=== PATIENT | male | born 1965 | race Caucasian/White ===

== ENCOUNTER → 2024-03-20 10:13 | Outpatient (REF) | payer BC, SELFPAY ==
[2024-03-20 10:55] LABS: % Basophils 0.4 % (0-2); % Eosinophils 1.6 % (0-6); % Immature Granulocytes 0.2 % (0-0.5); % Lymphocytes 30.6 % (20.5-51.1); % Monocytes 8.1 % (1.7-9.3); % Neutrophils 59.1 % (42.2-75.2); Absolute Eosinophils 0.1 10^3/uL (0-0.7); Absolute Lymphocytes 1.5 10^3/uL (1.2-3.4); Absolute Monocytes 0.4 10^3/uL (0.1-0.6); Hematocrit 43.4 % (39.0-52.0); Hemoglobin 14.9 g/dL (13.0-18.0); Mean Corp Hgb Conc. 34.3 g/dL (33.0-37.0); Mean Corpuscular Hgb 32.5 pg (27.0-31.0); Mean Corpuscular Volume 94.8 fL (80.0-94.0); Mean Platelet Volume 9.3 fL (7.4-10.4); Nucleated Red Blood Cells % 0 % (-); Platelet Count 244 10^3/uL (130-400); Red Blood Cell Count 4.58 10^6/uL (4.70-6.10); Red Cell Dist. Width 12.1 % (11.5-14.5)
[2024-03-20 11:33] LABS: ALT (SGPT) 26 U/L (0-50); AST (SGOT) 34 U/L (17-59); Albumin 4.7 g/dl (3.5-5.0); Alkaline Phosphatase 75 U/L (38-126); Blood Urea Nitrogen 18 mg/dl (9-20); Calcium 9.9 mg/dl (8.4-10.2); Carbon Dioxide 29 mmol/L (22-30); Chloride 104 mmol/L (98-107); Glucose 96 mg/dl (70-99); HDL Cholesterol 54 mg/dl; LDL Cholesterol, Calculated 67 mg/dl; Potassium 4.8 mmol/L (3.5-5.1); Sodium 141 mmol/L (135-145); Total Bilirubin 1.4 mg/dl (0.2-1.3); Total Cholesterol 135 mg/dl (50-199); Total Protein 7.3 g/dl (6.3-8.2); Triglyceride 72 mg/dl (10-149); Very Low Density Lipoprotein 14 mg/dl (0-30); eGFR > 60.00
[2024-03-20 11:58] LABS: PSA, Total - Screen 1.04 ng/ml (0.0-4.0); TSH Reflex To Free T4 1.28 uIU/ml (0.47-4.68)
[2024-03-20 14:43] LABS: Vitamin B12 566 pg/ml (239-931)
[2024-03-21 14:24] LABS: Syphilis/T. pallidum Ab Reflex Negative (Negative)
== END ==
LOC: REG 10:13
PROVIDERS: ATTENDING PHYSICIAN Student in an Organized Health Care Education/Training Program
DX: E78.5 Hyperlipidemia, unspecified (principal); R41.3 Other amnesia; Z00.00 Encounter for general adult medical examination without abnormal findings; Z12.5 Encounter for screening for malignant neoplasm of prostate; R25.1 Tremor, unspecified
CPT/HCPCS: 36415; 80053; 80061; 82607; 84443; 85025; 86780; G0103

== ENCOUNTER 2024-12-10 13:48 | Emergency (ER) | payer BC, SELFPAY ==
[2024-12-10 14:15] VITALS: BP 140/94
--- NOTE | 2024-12-10 17:16 | ED.GENMED ---
History of Present Illness
General
Chief Complaint: Abdominal Pain
Source: patient
Exam Limitations: none
Time Seen by Provider: 12/10/24 17:04
History of Present Illness
History of Present Illness:
59-year-old male who presents emergency department with constipation for the last 9 days despite taking zevt-hmy-jzukguo laxatives. He states that over the last 2 days with the help of suppositories he has passed watery brown stool that sometimes
is tinged with bright red blood. He denies anorexia, nausea, vomiting, fever, chills, chest pain, shortness of breath. He does have mild discomfort in the left lower quadrant for the last 2 days rated as a 5 out of 10 that is constant without
exacerbating relieving factors.
Past History
Past History
ED Past Medical History: Arrthythmia, CAD and DC
ED Past Surgical History: Cardiac
Social History
Tobacco: Non-smoker
Alcohol: Occasional
Drug: None
Personal:
Living: with family
Employment: Employed
Phy Exam
Physical Exam
Physical Exam:
GENERAL: Alert , in no apparent distress
EYE: pupils equal and reactive
NECK: Supple, no significant adenopathy.
ENT: o/p clr, mmm.
CARDIAC: Regular rate and rhythm .
LUNGS: Clear breath sounds bilaterally, no acute respiratory distress, no wheezes/rales/rhonchi
ABDOMEN: Soft, very mild left lower quadrant tenderness, no r/g, no cvat
NEUROLOGICAL: Alert and oriented, no focal neuro deficits
SKIN: Warm and dry, skin intact.
MUSCULOSKELETAL: No edema, well perfused.
PSYCH: Normal and appropriate interaction.
Rectal The RN Starr I present empty vault, heme-negative
Course
Orders/Labs/Results
Orders:
Orders
12/10/24 14:23
Obstruct Series W/PA Chest [CR Obstruct Series W/pa Chest] Urgent
Comment:
Reason For Exam: possible obs, constipation
12/10/24 17:19
CT Abd/Pel (IV only)-DH only Urgent
Comment:
Reason For Exam: llq pain, constipation
12/10/24 17:38
Complete Blood Count/No Diff Urgent
Comprehensive Metabolic Panel Urgent
Abnormal Lab Results
12/10/24
17:38
RBC 4.60 L 10^6/uL
(4.70-6.10)
MCH 33.0 H pg
(27.0-31.0)
Carbon Dioxide 31 H mmol/L
(22-30)
12/10/24 17:38
12/10/24 17:38
Vital Signs
Initial and Last Documented VS:
Initial Vital Signs
Temp Pulse Resp BP Pulse Ox
97.9 F 79 16 140/94 98
12/10/24 14:15 12/10/24 14:15 12/10/24 14:15 12/10/24 14:15 12/10/24 14:15
Last Documented Vital Signs
Temp Pulse Resp BP Pulse Ox
97.9 F 79 16 140/94 98
12/10/24 14:15 12/10/24 14:15 12/10/24 14:15 12/10/24 14:15 12/10/24 14:15
*Critical Care Note
Total Time (30-74mins, 75-104mins- exclusive of procedures): Not Applicable
Update Note
Update Note:
Patient presents to the Emergency Department with ___inability to have a bowel movement
Number and Complexity of Problems Addressed at the Encounter
� Chronic conditions affecting care:
� Acute Exacerbation and/or Progression of Chronic Illness:
� Differential Diagnosis includes: But not limited to functional constipation, bowel obstruction, diverticulitis, etc. etc.
Amount and/or Complexity of Data to be Reviewed and Analyzed
� I performed an independent evaluation of and my interpretation is:
EKG:
CT:There is an enhancing mass arising in the right kidney as described, which very likely represents renal cell carcinoma. No evidence for thrombus within the right renal vein or the IVC.
Small moderate amount of stool within the colon. No findings to suggest stercoral colitis.
No evidence for bowel obstruction or free intraperitoneal air.
Bony degenerative changes as described. No CT evidence for bony metastatic disease.
No CT evidence for lymphadenopathy within the abdomen or pelvis.
Xrays:
Laboratory Studies: Generally unremarkable
Other:
� Review of other/old records reveals:
� Clinical information was obtained by an independent historian:
� Prescriptions/Medications Considered but not given:
� Further testing considered but not performed:
Risk of Complications and/or Morbidity or Mortality of Patient Management
� Social determinants of health affecting care:
� Discussion with other providers (PCP, Hospitalists, Consultants, etc):
� Escalation of care including admission/observation vs risk of discharge considered: Patient notified of CAT scan report including suspicion for RCC. He was given a copy of the report. I spoke to his primary care doctor,
Oskar Nicole, via [employer] text and she will connect with patient in the morning to continue workup.
ED Attending Note
-
Portions of this chart may have been created with voice recognition software.� Occasional wrong word or��sound alike� substitutions may have occurred due to the inherent limitations of voice recognition software.
Discharge Plan
Departure
Patient Disposition: Home (Routine Discharge)
Date of Disposition: 12/10/24
Time of Disposition: 19:50
Patient with high blood pressure during this ER visit?: Yes
Condition: Good
Discharge Problem:
Constipation, Abdominal pain
Instructions: Constipation, Adult (DC), Abdominal Pain, BLOOD PRESSURE
Prescriptions:
No Action
atorvastatin 40 MG tablet
40 mg PO QPM Qty: 30 3RF
clopidogrel 75 MG tablet
75 mg PO DAILY Qty: 30 3RF
aspirin 81 MG tablet,chewable
81 mg PO DAILY Qty: 30 3RF
metoprolol succinate 12.5 MG tablet extended release 24 hr
12.5 mg PO QPM Qty: 30 0RF
Referrals:
Elizabeth Rader MD [Family Provider] - Tomorrow
Activity Restrictions/Additional Instructions:
WE DISCUSSED, YOU HAVE FINDINGS ON YOUR CAT SCAN THAT REQUIRE URGENT FOLLOW-UP. PLEASE CALL YOUR FAMILY DOCTOR FIRST THING IN THE MORNING TO BEGIN THIS IMPORTANT EVALUATION. IT IS RECOMMENDED THAT YOU BEGIN TAKING MIRALAX DIRECTED EACH DAY.
IF YOU DEVELOP INCREASING NEW OR PERSISTENT PAIN, ANY FEVER, VOMITING, CHEST PAIN, BLEEDING, OR OTHER WORRISOME SIGNS, PLEASE RETURN TO THE ER IMMEDIATELY.
Interventions
Interventions:
*Risk Screen - Suicide Last Done: 12/10/24 14:15
*Neglect/Abuse Screening Last Done: 12/10/24 14:15
Discharge Date and Time
Print Language: KOREAN
[2024-12-10 17:46] LABS: Hematocrit 42.8 % (39.0-52.0); Hemoglobin 15.2 g/dL (13.0-18.0); Mean Corp Hgb Conc. 35.5 g/dL (33.0-37.0); Mean Platelet Volume 9.2 fL (7.4-10.4); Platelet Count 226 10^3/uL (130-400); Red Cell Dist. Width 12.2 % (11.5-14.5); White Blood Cell Count 6.9 10^3/uL (4.8-10.8)
[2024-12-10 18:00] LABS: ALT (SGPT) 28 U/L (0-50); AST (SGOT) 31 U/L (17-59); Albumin 4.8 g/dl (3.5-5.0); Alkaline Phosphatase 79 U/L (38-126); Blood Urea Nitrogen 13 mg/dl (9-20); Calcium 9.5 mg/dl (8.4-10.2); Carbon Dioxide 31 mmol/L (22-30); Chloride 100 mmol/L (98-107); Glucose 99 mg/dl (70-99); Potassium 4.6 mmol/L (3.5-5.1); Sodium 138 mmol/L (135-145); Total Bilirubin 1.1 mg/dl (0.2-1.3); Total Protein 7.4 g/dl (6.3-8.2); eGFR > 60.00
[2024-12-10 19:53] VITALS: BP 161/98
== END 2024-12-10 20:14 | disposition home or self-care (01) ==
LOC: EMR 13:48
PROVIDERS: EMERGENCY PHYSICIAN Emergency Medicine; FAMILY PHYSICIAN Student in an Organized Health Care Education/Training Program
DX: K59.00 Constipation, unspecified (principal); R03.0 Elevated blood-pressure reading, without diagnosis of hypertension; R10.9 Unspecified abdominal pain
CPT/HCPCS: 99285; 74022; 74177; 80053; 85027; Q9967

== ENCOUNTER → 2025-04-09 07:23 | Outpatient (REF) | payer BC, SELFPAY ==
[2025-04-09 09:00] LABS: HDL Cholesterol 44 mg/dl; LDL Cholesterol, Calculated 53 mg/dl; Very Low Density Lipoprotein 16 mg/dl (0-30)
== END ==
LOC: REG 07:23
PROVIDERS: ATTENDING PHYSICIAN Internal Medicine Cardiovascular Disease; FAMILY PHYSICIAN Student in an Organized Health Care Education/Training Program
DX: E78.5 Hyperlipidemia, unspecified (principal)
CPT/HCPCS: 36415; 80061

== ENCOUNTER → 2025-04-26 09:00 | Outpatient (REF) | payer BC, SELFPAY | LOC: RCS 09:00 | PROVIDERS: ATTENDING PHYSICIAN Internal Medicine Cardiovascular Disease; FAMILY PHYSICIAN Student in an Organized Health Care Education/Training Program | DX: Z95.1 Presence of aortocoronary bypass graft (principal); I25.10 Atherosclerotic heart disease of native coronary artery without angina pectoris | CPT/HCPCS: 93306 ==

== ENCOUNTER → 2025-07-09 13:01 | Outpatient (REF) | payer BC, SELFPAY ==
[2025-07-09 14:29] LABS: Blood Urea Nitrogen 15 mg/dl (9-20); Calcium 9.2 mg/dl (8.4-10.2); Carbon Dioxide 29 mmol/L (22-30); Chloride 102 mmol/L (98-107); Glucose 91 mg/dl (70-99); Potassium 4.5 mmol/L (3.5-5.1); Sodium 138 mmol/L (135-145); eGFR > 60.00
== END ==
LOC: REG 13:01
PROVIDERS: ATTENDING PHYSICIAN Physician Assistant Surgical; FAMILY PHYSICIAN Student in an Organized Health Care Education/Training Program
DX: C64.9 Malignant neoplasm of unspecified kidney, except renal pelvis (principal)
CPT/HCPCS: 36415; 80048

== ENCOUNTER 2025-08-05 10:02 | Emergency (ER) | payer BC, SELFPAY ==
[2025-08-05 10:06] VITALS: BP 146/78
[2025-08-05 12:17] VITALS: BP 157/90
--- NOTE | 2025-08-05 12:27 | ED.GENMED ---
History of Present Illness
<Tiana Costa MD, Resident - Last Filed: 08/05/25 13:05>
General
Chief Complaint: Bowel Problem
Source: patient
Time Seen by Provider: 08/05/25 11:43
History of Present Illness
History of Present Illness:
60-year-old male with past medical history of renal cell carcinoma status post resection February 2025, LA status post triple bypass surgery presents to the ED for constipation of 2-1/2 weeks. He has not had a bowel movement since 2.5 weeks ago. He has
had squirts of very liquidy diarrhea over the past few days. He has tried every qrvy-gsj-zjxkmxn laxative, enema, stool softener available to no avail. His primary care doctor recommended him to come in for stronger enema/manual disimpaction. He
denies any fevers, chills, nausea, vomiting and has been able to take p.o. He denies any blood in the stool. He endorses slight abdominal discomfort in the left lower quadrant but is otherwise comfortable.
Patient is concerned given the last time this happened he was diagnosed with renal cell carcinoma causing bowel obstruction. He had a partial right nephrectomy in December 2024 and repeat abdomen pelvic CT with Sae Lares 6 months later (june)
which did not reveal any recurrence of the malignancy.
Past History
<Tiana Costa MD, Resident - Last Filed: 08/05/25 13:05>
Past History
ED Past Medical History: Arrthythmia, CAD, LA and Other (Renal cell carcinoma right kidney status post partial nephrectomy 12/2024)
ED Past Surgical History: Cardiac and Other (Partial right sided nephrectomy in 12/2024)
Social History
Tobacco: Non-smoker
Alcohol: Occasional
Drug: None
Personal:
Living: with family
Employment: Employed
Review of Systems
<Tiana Costa MD, Resident - Last Filed: 08/05/25 13:05>
Review of Systems
Allergies reviewed?: Yes
Constitutional: Reports no symptoms
EENT: Reports no symptoms
Respiratory: Reports no symptoms
Cardiac: Reports no symptoms
ABD/GI: Reports constipated
: Reports no symptoms
Musculoskeletal: Reports no symptoms
Skin: Reports no symptoms
Neurological: Reports no symptoms
Psychiatric: Reports no symptoms
Phy Exam
<Tiana Costa MD, Resident - Last Filed: 08/05/25 13:05>
Physical Exam
Physical Exam:
General: Well-appearing, nontoxic
Head: Atraumatic
Neck: Supple
Cardiac: Regular S1, S2, no murmurs
Respiratory: Clear breath sounds bilaterally
Abdominal: Stool burden palpable in central lower abdomen, all other quadrants nontender, nondistended, normal bowel sounds in all 4 quadrants
Neurological: Nonfocal, awake alert and oriented
Genital: Digital rectal exam unable to feel hard fecal mass at anus, Hemoccult negative.
EXTR: No peripheral edema
Psych: Mood stable
Course
<Tiana Costa MD, Resident - Last Filed: 08/05/25 13:05>
Orders/Labs/Results
Orders:
Orders
08/05/25 12:12
Enema- Treatment ONCE
Type: Milk of Molasses
08/05/25 13:04
CT Abd/pel W Iv And Oral Contr Urgent
Comment:
Reason For Exam: No bowel movement for past 2.5 weeks, ab pain,
Iohexol [Omnipaque] See Protocol PO NOW STA
08/05/25 13:11
BMP [Basic Metabolic Panel] Urgent
Complete Blood Count/With Diff Urgent
08/05/25 17:01
Enema- Treatment ONCE
Type: Soap Suds
08/05/25 18:03
Magnesium Citrate [Citroma] 300 ml PO ONCE ONE
Abnormal Lab Results
08/05/25
13:11
RBC 4.68 L 10^6/uL
(4.70-6.10)
MCV 96.2 H fL
(80.0-94.0)
MCH 32.7 H pg
(27.0-31.0)
Carbon Dioxide 31 H mmol/L
(22-30)
08/05/25 13:11
08/05/25 13:11
Vital Signs
Initial and Last Documented VS:
Initial Vital Signs
Temp Pulse Resp BP Pulse Ox
98.3 F 49 16 146/78 98
08/05/25 10:06 08/05/25 10:06 08/05/25 10:06 08/05/25 10:06 08/05/25 10:06
Last Documented Vital Signs
Temp Pulse Resp BP Pulse Ox
98.3 F 49 16 157/90 100
08/05/25 10:06 08/05/25 10:06 08/05/25 10:06 08/05/25 12:17 08/05/25 12:37
<Neymar Valera MD - Last Filed: 08/07/25 11:57>
Orders/Labs/Results
Orders:
Orders
08/05/25 12:12
Enema- Treatment ONCE
Type: Milk of Molasses
08/05/25 13:04
CT Abd/pel W Iv And Oral Contr Urgent
Comment:
Reason For Exam: No bowel movement for past 2.5 weeks, ab pain,
Iohexol [Omnipaque] See Protocol PO NOW STA
08/05/25 13:11
BMP [Basic Metabolic Panel] Urgent
Complete Blood Count/With Diff Urgent
08/05/25 17:01
Enema- Treatment ONCE
Type: Soap Suds
08/05/25 18:03
Magnesium Citrate [Citroma] 300 ml PO ONCE ONE
Abnormal Lab Results
08/05/25
13:11
RBC 4.68 L 10^6/uL
(4.70-6.10)
MCV 96.2 H fL
(80.0-94.0)
MCH 32.7 H pg
(27.0-31.0)
Carbon Dioxide 31 H mmol/L
(22-30)
08/05/25 13:11
08/05/25 13:11
Vital Signs
Initial and Last Documented VS:
Initial Vital Signs
Temp Pulse Resp BP Pulse Ox
98.3 F 49 16 146/78 98
08/05/25 10:06 08/05/25 10:06 08/05/25 10:06 08/05/25 10:06 08/05/25 10:06
Last Documented Vital Signs
Temp Pulse Resp BP Pulse Ox
98.3 F 49 16 157/90 100
08/05/25 10:06 08/05/25 10:06 08/05/25 10:06 08/05/25 12:17 08/05/25 12:37
<Tiana Costa MD, Resident - Last Filed: 08/05/25 13:05>
MDM/Problems Addressed
Differential Diagnosis Includes:
Constipation, malignancy, obstruction, medication induced constipation
MDM/Problems Addressed:
Digital rectal exam attempted and unable to feel any hard fecal mass at the anus. Hemoccult was negative. Milk of molasses enema ordered. May consider imaging if unable to have a bowel movement after milk of molasses enema.
<Tiana Costa MD, Resident - Last Filed: 08/05/25 13:05>
*Pulse Oximetry
SaO2: 100
Oxygen Mode of Delivery: Room air
Patient hypoxic: no
*Critical Care Note
Total Time (30-74mins, 75-104mins- exclusive of procedures): Not Applicable
Data Reviewed
Review of Other/Old Records Reveals: Labs (Stable hemoglobin on 12/10/2024) and Radiology Studies (Renal cell carcinoma noted on abdomen/pelvis CT 12/10/2024)
Source: patient
<Neymar Valera MD - Last Filed: 08/07/25 11:57>
Update Note
Update Note:
CT report reviewed and discussed with patient. Repeat abdominal exam: Soft and nontender. Decision made to administer second dose of enema, unfortunately, without success. As such, patient will be discharged home at this time, with recommendation
to continue diet modification, stool softener, along with oral laxatives, as well as PCP follow-up.
ED Attending Note
<Tiana Costa MD, Resident - Last Filed: 08/05/25 13:05>
-
Portions of this chart may have been created with voice recognition software.� Occasional wrong word or��sound alike� substitutions may have occurred due to the inherent limitations of voice recognition software.
Discharge Plan
Departure
Patient Disposition: Home (Routine Discharge)
Date of Disposition: 08/05/25
Time of Disposition: 18:04
Patient with high blood pressure during this ER visit?: Yes
Condition: Good
Discharge Problem:
Constipation
Instructions: Constipation, Adult (DC)
Prescriptions:
No Action
atorvastatin 40 MG tablet
40 mg PO QPM Qty: 30 3RF
clopidogrel 75 MG tablet
75 mg PO DAILY Qty: 30 3RF
aspirin 81 MG tablet,chewable
81 mg PO DAILY Qty: 30 3RF
metoprolol succinate 12.5 MG tablet extended release 24 hr
12.5 mg PO QPM Qty: 30 0RF
Referrals:
Elizabeth Rader MD [Family Provider, Internal Medicine]
Activity Restrictions/Additional Instructions:
As discussed, please follow-up with your primary care physician for continual evaluation and treatment. The meantime, recommend diet modification, i.e. increasing fiber intake, along with use of stool softener and oral laxatives. Please consider
return to ED with worsening symptoms, i.e. fever/worsening pain/vomiting.
Interventions
Interventions:
*Risk Screen - Suicide Last Done: 08/05/25 10:06
*Neglect/Abuse Screening Last Done: 08/05/25 10:06
*ED- Fall Risk Assessment Last Done: 08/05/25 10:55
*ED COVID-19 Vaccine History Last Done: 08/05/25 10:55
*ED Influenza Vaccine History Last Done: 08/05/25 10:55
*Nursing Disposition Last Done: 08/05/25 18:19
SY-Mkendb-Wkjhdgiuyx Assessment Last Done: 08/05/25 10:55
Discharge Date and Time
Discharge Date/Time: 08/05/25 18:19
Print Language: MALAY
[2025-08-05] MEDS: OMNIPAQUE 50 ML PO (13:10)
[2025-08-05 13:23] LABS: Hematocrit 45.0 % (39.0-52.0); Hemoglobin 15.3 g/dL (13.0-18.0); Mean Corp Hgb Conc. 34.0 g/dL (33.0-37.0); Mean Corpuscular Volume 96.2 fL (80.0-94.0); Nucleated Red Blood Cells % 0 % (-); Platelet Count 223 10^3/uL (130-400); Red Cell Dist. Width 12.2 % (11.5-14.5)
[2025-08-05 13:47] LABS: Blood Urea Nitrogen 13 mg/dl (9-20); Calcium 9.4 mg/dl (8.4-10.2); Carbon Dioxide 31 mmol/L (22-30); Chloride 104 mmol/L (98-107); Glucose 98 mg/dl (70-99); Potassium 5.0 mmol/L (3.5-5.1); Sodium 140 mmol/L (135-145); eGFR > 60.00
[2025-08-05] MEDS: CITROMA 300 ML PO (18:21)
== END 2025-08-05 18:19 | disposition home or self-care (01) ==
LOC: EMR 10:02
PROVIDERS: EMERGENCY PHYSICIAN Emergency Medicine; FAMILY PHYSICIAN Student in an Organized Health Care Education/Training Program
DX: K59.00 Constipation, unspecified (principal); I25.10 Atherosclerotic heart disease of native coronary artery without angina pectoris; I25.2 Old myocardial infarction; C64.9 Malignant neoplasm of unspecified kidney, except renal pelvis; Z90.5 Acquired absence of kidney
CPT/HCPCS: 99284; 74177; 80048; 85025; Q9967

== ENCOUNTER → 2025-08-13 12:36 | Outpatient (REF) | payer BC, SELFPAY | LOC: RAD 12:36 | PROVIDERS: ATTENDING PHYSICIAN Student in an Organized Health Care Education/Training Program | DX: K59.00 Constipation, unspecified (principal) | CPT/HCPCS: 74018 ==

== ENCOUNTER 2025-09-02 06:25 | Day surgery (SDC) | payer BC, SELFPAY | END 2025-09-02 15:53 | disposition home or self-care (01) | LOC: GI 06:25 | PROVIDERS: ATTENDING PHYSICIAN Internal Medicine Gastroenterology | DX: R19.4 Change in bowel habit (principal); K64.9 Unspecified hemorrhoids; R12 Heartburn; K31.89 Other diseases of stomach and duodenum; D12.2 Benign neoplasm of ascending colon; D12.3 Benign neoplasm of transverse colon; K63.5 Polyp of colon; D12.5 Benign neoplasm of sigmoid colon | CPT/HCPCS: 45385; 45380; 43239; 88305; 88342 ==